=== PATIENT | male | born 1955 | race Caucasian/White ===

== ENCOUNTER 2024-09-05 08:19 | Outpatient (CLI) | payer OTHER | END 2024-09-05 23:59 | disposition home or self-care (01) | LOC: MRI02 08:19 | PROVIDERS: ATTEND Physician Assistant | DX: Z12.2 Encounter for screening for malignant neoplasm of respiratory organs (principal); M54.12 Radiculopathy, cervical region; J43.9 Emphysema, unspecified; R59.1 Generalized enlarged lymph nodes; J98.11 Atelectasis; J98.4 Other disorders of lung; N28.1 Cyst of kidney, acquired; E04.2 Nontoxic multinodular goiter; Z87.891 Personal history of nicotine dependence | CPT/HCPCS: 71271; 76536 ==

== ENCOUNTER 2024-09-08 08:30 | Outpatient (CLI) | payer OTHER | END 2024-09-08 23:59 | disposition home or self-care (01) | LOC: MRI02 08:30 | PROVIDERS: ATTEND Physician Assistant | DX: M54.12 Radiculopathy, cervical region (principal); M43.02 Spondylolysis, cervical region; M48.02 Spinal stenosis, cervical region; R59.1 Generalized enlarged lymph nodes; Z87.891 Personal history of nicotine dependence | CPT/HCPCS: 72141 ==

== ENCOUNTER 2025-01-01 15:12 | Outpatient (CLI) | payer OTHER ==
[2025-01-01 16:09] LABS: INR 3.7 INR; PROTHROMBIN TIME 33.4 SECONDS (9.0-12.0)
== END 2025-01-01 23:59 | disposition home or self-care (01) ==
LOC: RAD 15:12
PROVIDERS: ATTEND Physician Assistant
DX: Z79.01 Long term (current) use of anticoagulants (principal); Z86.711 Personal history of pulmonary embolism
CPT/HCPCS: 36415; 85610

== ENCOUNTER 2025-01-29 13:10 | Outpatient (CLI) | payer OTHER ==
[2025-01-29 13:39] LABS: INR 2.8 INR; PROTHROMBIN TIME 26.4 SECONDS (9.0-12.0)
== END 2025-01-29 23:59 | disposition home or self-care (01) ==
LOC: LAB 13:10
PROVIDERS: ATTEND Physician Assistant
DX: Z79.01 Long term (current) use of anticoagulants (principal); Z86.711 Personal history of pulmonary embolism
CPT/HCPCS: 36415; 85610

== ENCOUNTER 2025-03-02 14:28 | Outpatient (CLI) | payer OTHER ==
[2025-03-02 15:57] LABS: INR 4.7 INR
== END 2025-03-02 23:59 | disposition home or self-care (01) ==
LOC: RAD 14:28
PROVIDERS: ATTEND Physician Assistant
DX: Z79.01 Long term (current) use of anticoagulants (principal); Z86.711 Personal history of pulmonary embolism
CPT/HCPCS: 36415; 85610

== ENCOUNTER 2025-03-26 01:56 | Emergency (ER) | payer MEDICARE, OTHER ==
[~2025-03-26] VITALS: Ht 175.3 cm; Wt 66.0 kg
[~2025-03-26 01:56] MED LIST: ATOR20TA66 PO; BUDE10.32 INH; FAMO40TA58 PO; GABAPENTIN PO; IPRA3AMP31; MONT-40 PO; PRED10TA PO; TRAZ-251 PO; WARF4TAB69 PO
[2025-03-26 02:30] VITALS: PULSE 113; RESP 18; O2SAT 95
--- NOTE | 2025-03-26 02:41 | Physician Documentation ---
History of Present Illness ~ Chief Complaint: Shortness of Breath Stated Complaint: SOB M ALS Time Seen by MD: 02:00 Primary Medical Doctor[facility] Mode of Arrival: EMS HPI Patient presents to the emergency room for evaluation of shortness of breath. Patient's history is complicated as he was admitted here recently with a laryngeal mass. He is transferred to [place] where they placed a tracheostomy and PEG tube for supplemental nutrition. Patient states that he had a stress test at [place] which was negative and they did a PET scan which was negative for metastasis. He states he is going to begin chemo soon. He was discharged today however upon arrival to his house he noticed that has some tubing was missing for his breathing apparatus therefore came into the emergency room. Medication Reconciliation Allergies: Coded Allergies: No Known Allergies (Unverified , 03/26/25) Scheduled Atorvastatin Calcium (Atorvastatin Calcium), 1 TAB PO DAILY, (Reported) Budesonide/Formoterol Fumarate (Breyna 160-4.5 Mcg Inhaler), 1 PUFFS INH BID, (Reported) Famotidine (Famotidine), 1 TAB PO DAILY, (Reported) Montelukast Sodium (Montelukast Sodium), 1 TAB PO DAILY, (Reported) Prednisone (Prednisone), 10 TAB PO BID, (Reported) Trazodone HCl (Trazodone HCl), 2 TAB PO HS, (Reported) Warfarin Sodium (Warfarin Sodium), 4 PO DAILY, (Reported) [Gabapentin], 300 PO BID, (Reported) Scheduled PRN Ipratropium/Albuterol Sulfate (Duoneb 2.5-0.5 Mg/3 Ml Soln), 3 ML Q6H PRN for SOB or wheezing, (Reported) Past Medical History Past Medical History: COPD Past Surgical History: noncontributory Patient History: Breast cancer Breast cancer in first degree relative Lung cancer Lung cancer Alcohol Use: None Drug Use: none Review of Systems ROS All review of systems negative except as per HPI Physical Exam Vital Signs: Temperature: 98.6, Heart Rate: 113, Respiratory Rate: 18, BP: 115/54, Pulse Oximetry: 95, Weight: 66.000 Oxygen Flow Rate: 4.0 General Appearance General: Patient is awake, alert, oriented x4 in no acute distress Head: Normocephalic and atraumatic. Eyes: Conjunctival normal. EOMI. PERRL. ENT: Mucous membranes moist. Neck: Supple, trachea is midline. Tracheostomy in place Chest: Clear to auscultation bilaterally without rales, rhonchi, or wheezes. There is no accessory muscle use or retractions. Cardiac: RRR without murmurs, gallops, or rubs. Abd: Soft, nondistended, nontender, with normoactive bowel sounds. No guarding, rebound, or rigidity. Peg tube noted Progress Results/Orders Results/Orders Orders - RENÉ BEARD MD Aerosol Treatment (03/26/25 ) Svn Treatment (03/26/25 04:20) Completed Orders - RENÉ BEARD MD Ipratropium/Albuterol Nebule (Ipratrop/A (03/26/25 04:20) Vital Signs 03/26/25 03/26/25 03/26/25 03/26/25 01:57 02:11 02:25 02:30 Temp 98.6 Pulse 109 113 Resp 14 20 18 B/P (MAP) 115/54 Pulse Ox 96 95 O2 Delivery Cool/Heated Aerosol Mist+ O2 Flow Rate 4.0 6 FiO2 28 28 03/26/25 03/26/25 03/26/25 03/26/25 03:14 04:33 04:40 05:02 Pulse 92 99 101 84 Resp 18 14 16 20 B/P (MAP) 125/57 (79) 109/70 (83) Pulse Ox 95 97 98 97 O2 Delivery Cool/Heated Aerosol Mist+ Cool/Heated Aerosol Mist+ O2 Flow Rate 6 6 FiO2 28 28 03/26/25 03/26/25 03/26/25 03/26/25 06:07 06:27 07:27 08:52 Temp 98.6 98.6 98.6 Pulse 78 76 88 75 Resp 18 19 16 18 B/P (MAP) 109/65 (80) 109/65 (80) 122/79 (93) 115/78 Pulse Ox 94 97 96 98 O2 Flow Rate 6 6 FiO2 28 28 Medical Decision Making Findings Patient presents to the emergency room not having his correct supplies for his tracheostomy. We will wait till morning to get his medical supplies and he is agreeable for this. He had not feel emergent labs or imaging is necessary Departure Time of Disposition: 08:25 Disposition: 01 HOME / SELF CARE / HOMELESS Impression: Primary Impression: Deficient supply of medical equipment Additional Impression: Unspecified tracheostomy complication Condition: Improved Discharge Instructions: Tracheostomy Tube Safety and Care, Adult Referrals: NO PRIMARY CARE PROVIDER (PCP) Education Educated: Patient, Family Educated regarding: need for follow up Signature Scribe Signature: No scribe Attestation: The note accurately reflects work and decisions made by me.René Beard MD 03/26/25 02:41 Addendum 8:20 a.m.: The patient now has the tracheostomy supplies that are needed. Respiratory therapy states that everything is connected and functioning well. The patient has no other acute needs. Plan is for discharge home with outpatient follow up. RENÉ Nevarez MD, MD Mar 26, 2025 02:41 DARYN SALAZAR MD Mar 26, 2025 08:26
[2025-03-26] MEDS: ipratropium/albuterol 3ml nebule NEB ONE (04:31)
[2025-03-26 04:33] VITALS: PULSE 99; RESP 14; O2SAT 97
[2025-03-26 04:40] VITALS: PULSE 101; RESP 16; O2SAT 98
[2025-03-26 08:52] VITALS: BP 115/78; PULSE 75; RESP 18; TEMP 98.6; O2SAT 98
== END 2025-03-26 08:54 | disposition home or self-care (01) ==
LOC: ER 01:56
DX: J95.00 Unspecified tracheostomy complication (principal); J44.9 Chronic obstructive pulmonary disease, unspecified
CPT/HCPCS: 94640; 94760; 99285

== ENCOUNTER 2025-03-30 14:08 | Emergency (ER) | payer MEDICARE, OTHER ==
[~2025-03-30] VITALS: Ht 177.8 cm; Wt 74.0 kg
[2025-03-30 14:10] VITALS: BP 99/68; PULSE 100; RESP 16; TEMP 98.5; O2SAT 99
--- NOTE | 2025-03-30 14:52 | Physician Documentation ---
History of Present Illness ~ Chief Complaint: Catheter Problem Stated Complaint: CATH PROBLEMS Time Seen by MD: 15:32 Primary Medical Doctor: DR. MARTINEZ [facility] This is a 70-year-old male who presents requesting urinary catheter removal, patient had urinary catheter placed by urologist and was directed to return for removal and evaluation of need for continued catheter. Patient reports no acute symptoms or concerns. Patient denies any flank pain or fevers or suprapubic discomfort or pain and states he only had the catheter placed mostly because while he was inpatient in the hospital he had a hard time getting up and down out of the bed to use the restroom. Patient denies any current chest pain or shortness of breath or abdominal pain or nausea, vomiting, diarrhea. Patient has no other concern or complaint at this time. Medication Reconciliation Allergies: Coded Allergies: No Known Allergies (Unverified , 03/30/25) Scheduled Atorvastatin Calcium (Atorvastatin Calcium), 1 TAB PO DAILY, (Reported) Budesonide/Formoterol Fumarate (Breyna 160-4.5 Mcg Inhaler), 1 PUFFS INH BID, (Reported) Famotidine (Famotidine), 1 TAB PO DAILY, (Reported) Montelukast Sodium (Montelukast Sodium), 1 TAB PO DAILY, (Reported) Prednisone (Prednisone), 10 TAB PO BID, (Reported) Trazodone HCl (Trazodone HCl), 2 TAB PO HS, (Reported) Warfarin Sodium (Warfarin Sodium), 4 PO DAILY, (Reported) [Gabapentin], 300 PO BID, (Reported) Scheduled PRN Ipratropium/Albuterol Sulfate (Duoneb 2.5-0.5 Mg/3 Ml Soln), 3 ML Q6H PRN for SOB or wheezing, (Reported) Past Medical History Past Medical History: COPD Past Surgical History: noncontributory Patient History: Breast cancer Breast cancer in first degree relative Lung cancer Lung cancer Alcohol Use: None Drug Use: none Review of Systems ROS As stated above in the HPI, otherwise all systems are reviewed and negative. Constitutional: Denies: chills, fever, weakness Eyes: Denies: pain, blurred vision ENT: Denies: ear pain, nose pain, throat pain, mouth pain Respiratory: Denies: cough, shortness of breath Cardiovascular: Denies: chest pain, palpitations Gastrointestinal: Denies: abdominal pain, nausea, vomiting Genitourinary: Denies: burning, dysuria Male Genitalia: Denies: penile discharge, testicular pain Neurological: Denies: headache, dizziness Musculoskeletal: Denies: pain, swelling Integumentary: Denies: rash, lesions Allergic/Immunologic: Denies: hives, itching Hematologic/Lymphatic: Denies: no symptoms reported Psychiatric: Denies: depression, anxiety Physical Exam Vital Signs: Temperature: 98.5, Source: Temporal, Heart Rate: 100, Respiratory Rate: 16, BP: 99/68, Pulse Oximetry: 99, Weight: 74.000 Oxygen Flow Rate: 0 Physical Exam General: Awake and Alert, no acute distress. HEENT: Conjunctiva pink, Sclera clear, Mucus Membranes moist. Neck: Supple without masses and tenderness. Resp: Unlabored. Lungs clear to auscultation bilaterally. Heart: Regular Rate and rhythm, normal S1 and S2 without murmur, rub or gallop. Abdomen: Soft and non tender no organomegaly Extremities: No cyanosis,clubbing or edema. Skin: Warm and Dry. Progress Results/Orders Results/Orders Vital Signs 03/30/25 14:10 Temp 98.5 Pulse 100 Resp 16 B/P (MAP) 99/68 Pulse Ox 99 O2 Flow Rate 0 Medical Decision Making Findings This is a 70-year-old male who presents requesting urinary catheter removal, patient had urinary catheter placed by urologist and was directed to return for removal and evaluation of need for continued catheter. Patient reports no acute symptoms or concerns. Patient denies any flank pain or fevers or suprapubic discomfort or pain and states he only had the catheter placed mostly because while he was inpatient in the hospital he had a hard time getting up and down out of the bed to use the restroom. Patient denies any current chest pain or sh ortness of breath or abdominal pain or nausea, vomiting, diarrhea. Patient has no other concern or complaint at this time. Patient did have catheter removed by nurse Smith. Patient tolerated well. Patient was observed and drank plenty of water and then was able to pass approximately 250 mL of urine just a couple of hours later. Patient states he is feeling much better and wants to go home. Patient will follow up with Urology as needed and will follow up with primary care in 2-3 days if no better as needed sooner. Return to ED with any worsening, concerning or changing symptoms. Departure Disposition: 01 HOME / SELF CARE / HOMELESS Impression: Primary Impression: BPH (benign prostatic hyperplasia) Qualified Codes: N40.1 - Benign prostatic hyperplasia with lower urinary tra ct symptoms; R35.0 - Frequency of micturition Additional Impression: Urinary retention Condition: Improved Discharge Instructions: Acute Urinary Retention, Male Additional Instructions: Patient did have catheter removed by nurse Smith. Patient tolerated well. Patient was observed and drank plenty of water and then was able to pass approximately 250 mL of urine just a couple of hours later. Patient states he is feeling much better and wants to go home. Patient will follow up with Urology as needed and will follow up with primary care in 2-3 days if no better as needed sooner. Return to ED with any worsening, concerning or changing symptoms. Patient was also given a prescription of tamsulosin to be taken once a day by mouth. Referrals: NO PRIMARY CARE PROVIDER (PCP) Prescriptions Tamsulosin Hcl* (Flomax*) 0.4 Mg Cap.sr.24h 1 CAP PO DAILY for 15 Days, #15 CAP Prov: ROSALEE MCCLAIN 03/30/25 Signature Scribe Signature: No scribe Attestation: No scribe LAUREN WEBERP Mar 30, 2025 14:52 ROSALEE CMCLAIN Mar 30, 2025 18:46
[2025-03-30] MEDS ORDERED: TAMS-55 PO (18:45)
== END 2025-03-30 18:51 | disposition home or self-care (01) ==
LOC: ER 14:09
DX: N40.1 Benign prostatic hyperplasia with lower urinary tract symptoms (principal); R33.8 Other retention of urine; J44.9 Chronic obstructive pulmonary disease, unspecified
CPT/HCPCS: 99283